=== PATIENT | male | born 1945 | race Caucasian/White ===

== ENCOUNTER → 2016-11-08 | Outpatient (CLI) | payer OTHER ==
[~2016-11-08] MED LIST: ACETAMINOPHEN500 MG; AMOXICILLIN500 M1 PO; ASPIR 8181 M1 PO; CLARITIN10 M3 PO; CRESTOR10 MG PO; Coreg PO; DEPAKOTE250 MG PO; Depakote PO; EFFEXOR XR75 MG PO; FLOMAX0.4 M1 PO; FOLVITE1 M1 PO; Feosol PO; GAS RELIEF180 MG; GLUCOPHAGE500 MG PO; INVEGA6 MG PO; KEFLEX500 MG PO; KLONOPIN1 M2 PO; KLONOPIN1 MG PO; KLONOPIN2 MG PO; KlonoPIN PO; LASIX40 MG PO; NITROSTAT,NITR0.4 M1 SL; OXYCODONE10 MG PO; PRILOSEC40 MG PO; Protonix PO; REQUIP1 MG PO; SINEQUAN100 MG PO; SINEQUAN50 MG PO; SPECTRAVITE1 EAC3; THIAMINE,VITAM100 MG PO; ZESTRIL,PRINIVI10 M1 PO; ZESTRIL,PRINIVI20 MG PO; ZESTRIL20 MG PO
== END | disposition home or self-care (01) ==
LOC: MRI 13:05 → RAD 13:45 → MRI 13:45
DX: G31.9 Degenerative disease of nervous system, unspecified (principal); I67.89 Other cerebrovascular disease; M48.02 Spinal stenosis, cervical region; M25.78 Osteophyte, vertebrae; M12.88 Other specific arthropathies, not elsewhere classified, other specified site; M79.609 Pain in unspecified limb
CPT/HCPCS: 70551; 72141

== ENCOUNTER 2017-10-18 12:23 | Emergency (ER) | payer OTHER ==
[~2017-10-18] VITALS: Ht 167.6 cm; Wt 81.5 kg
[2017-10-18 13:34] VITALS: BP 136/89
== END 2017-10-18 13:35 | disposition home or self-care (01) ==
LOC: EME 12:23 → RME 12:23
DX: S61.412A Laceration without foreign body of left hand, initial encounter (principal); W45.8XXA Other foreign body or object entering through skin, initial encounter; W22.8XXA Striking against or struck by other objects, initial encounter; Z79.82 Long term (current) use of aspirin; Z23 Encounter for immunization; I10 Essential (primary) hypertension; E11.9 Type 2 diabetes mellitus without complications; Z79.84 Long term (current) use of oral hypoglycemic drugs; Z87.891 Personal history of nicotine dependence
CPT/HCPCS: 99281; 99284

== ENCOUNTER 2017-10-22 18:36 | Emergency (ER) | payer OTHER ==
[~2017-10-22] VITALS: Ht 170.2 cm; Wt 79.5 kg
[2017-10-22 19:33] VITALS: BP 152/96
== END 2017-10-22 19:33 | disposition home or self-care (01) ==
LOC: EXP 18:36 → EME 18:36 → EXP 19:33
DX: S61.412D Laceration without foreign body of left hand, subsequent encounter (principal); Z48.00 Encounter for change or removal of nonsurgical wound dressing
CPT/HCPCS: 99281; 99283